=== PATIENT | female | born 1990 | race Caucasian/White ===

== ENCOUNTER → 2019-09-17 13:56 | Outpatient (CLI) | payer OTHER, SELFPAY ==
--- NOTE | 2019-09-17 14:02 | CT_ITS ---
STUDY: CT MAXILLOFACIAL SINUSES REASON FOR EXAM: Female, 29 years old. SINUSITIS, PRIOR POLYP REMOVAL TWO YEARS AGO RADIATION DOSAGE (If Supplied By Facility): CTDIvol = ( 33.45 ) mGy, DLP = ( 805.64 ) mGycm TECHNIQUE: The patient was scanned in a multi detector CT scanner. High resolution axial imaging was performed without the administration of intravenous contrast material. Sagittal and coronal images were reconstructed. Individualized dose optimization techniques were used for this CT. COMPARISON: Comparison is made with prior study dated March 10, 2017. FINDINGS: FRONTAL SINUSES: Opacification of the frontal sinuses. ETHMOIDAL SINUSES: Opacification of the ethmoid sinuses worse on the right side with thinning of the bony septations. MAXILLARY SINUSES: Opacification of the maxillary sinus bilaterally worse on the right side. There is thinning of the medial wall of both maxillary sinuses. SPHENOIDAL SINUSES: Opacification of the left sphenoid sinus and partial opacification of the right sphenoid sinus. There is obliteration of both maxillary infundibula due to mucosal hypertrophy. Normal bilateral middle turbinates. Normal bilateral inferior turbinates. Normal midline nasal septum. There is partial obstruction of the right nasal cavity most likely secondary to polyposis. The visualized osseous structures are normal. The visualized bilateral orbital contents are normal. CT/Sinus/Facial Bone IMPRESSION: Linder sinusitis with findings suggestive of polyposis of the right nasal fossa. Electronically Signed: Abhinav Waters, at 14:26 EDT , Service support ,
== END ==
PROVIDERS: PCP Family Medicine; Referring Provider Otolaryngology; Visit Provider Otolaryngology
DX: J33.9 Nasal polyp, unspecified (principal); J32.9 Chronic sinusitis, unspecified
CPT/HCPCS: 70486

== ENCOUNTER 2019-10-01 08:44 | Day surgery (SDC) | payer OTHER, SELFPAY ==
[2019-10-01] VITALS (7 sets, daily range): BP systolic 119–133; BP diastolic 83–97; PULSE 58–84; RESP 16–18; TEMP 36.1–36.5; O2SAT 99–100; BMI 30.7
[2019-10-01 09:19] LABS: Internal QC Validated? YES +Cl - CLEAR BKGD; Pregnancy, Urine Negative Negative
[2019-10-01] MEDS: Lactated Ringers 1,000 ML 100 ML IV (09:25)
--- NOTE | 2019-10-01 10:04 | DCINST_ITS ---
You will use the following diet at home:: No restrictions Your food should be the consistency of: Regular Discharge Activity: May not drive while taking narcotic pain medications. Call your doctor if your incision/area has: Sudden Increased Bleeding, Increased Pain/ Swelling Additional Dressing/Incision Instructions:: mupirocin to both nostrils daily. saline irrigation 5 times / day. sleep with head of bed elevated. Allergies/Adverse Reactions: Allergies No Known Allergies Allergy (Verified 10/01/19 09:09) Medications to take at Discharge Albuterol Inhaler [Ventolin Hfa (SP)] 1 - 2 puff INHALATION Q6H PRN PRN 09/24/19 Apremilast [Otezla] 1 ea PO QODAY 09/24/19 Cetirizine HCl [Zyrtec] 10 mg PO DAILY 09/24/19 Desogestrel-Ethinyl Estradiol [Enskyce 28 Tablet] 1 ea PO DAILY 09/24/19 Montelukast [Singulair] 10 mg PO DAILY 09/24/19 Propranolol HCl [Inderal] 10 mg PO DAILY 09/24/19 RX: Multivitamin 1 ea PO DAILY 09/24/19 Primary Care Physician: John Hudson MD [Primary Care Provider] - Test Results: Test results from this visit will be discussed in further detail at your follow- up appointment, if applicable. Please Follow Up With: Oral Hackett MD When: 1 week
--- NOTE | 2019-10-01 10:05 | PCM.OPRPT ---
Problem List (1) Nasal congestion Status: Chronic (2) Chronic sinusitis Status: Chronic (3) Nasal septal deviation Status: Chronic (4) Nasal turbinate hypertrophy Status: Chronic (5) Nasal polyps Status: Chronic Report of Operation Date of Procedure: 10/01/19 Pre-Operative Diagnosis: 1. nasal congestion. 2. inferior turbinate hypertrophy, right and left. 3. nasal septal deflection. 4. chronic pansinusitis. 5. nasal polyps Post-Operative Diagnosis: 1. nasal congestion. 2. inferior turbinate hypertrophy, right and left. 3. nasal septal deflection. 4. chronic pansinusitis. 5. nasal polyps Surgery/Procedure Performed:: 1. septoplasty. 2. inferior turbinate reduction, right and left. 3. endoscopic ethmoidectomy with sphenoidotomy, right and left. 4. endoscopic maxillary antrostomy, right and left. 5. extensive excision nasal polyps, right and left. 6. CT guided image navigation Type of Anesthesia:: General Description of Procedure: on the day of the procedure, after appropriate informed consent was obtained, the patient was brought to the operating room and placed in supine position on the operating table. she was placed under general endotracheal anesthesia by the anesthesiologist. the endotracheal tube was secured, the eyes were taped. the bilateral nasal cavities were decongested with oxymetazoline soaked pledgets. the septum was injected with lidocaine/epinephrine. a left marginal incision was made with a 15 blade. submucoperichondrial planes were developed using a delmar elevator posteriorly to the bony-cartilaginous junction and inferiorly to the maxillary crest. a 1.5cm L-strut was preserved and the remainder of the septum was removed with a D knife. deviated portions of the perpendicular plate of the ethmoid and vomer were removed with a helene rodriguez. the submucoperichondrial flaps were brought together with 4-0 chromic. the head of the right and left turbinates were injected with lidocaine/epinephrine. the head of the left inferior turbinate was incised with a 15 blade, dissected with a delmar elevator, reduced using suction cautery and outfractured using a boies elevator. the head of the right inferior turbinate was incised with a 15 blade, dissected with a delmar elevator, reduced using suction cautery and outfractured using a boies elevator. CT image guidance navigation was set up and accuracy confirmed. the zero degree endoscope was used to evaluate the left nasal cavity. extensive middle meatus, sphenoethmoidal recess and frontal recess polyps were removed with the microdebrider. a revision maxillary antrostomy was performed with the microdebrider and contents were evacuated. a revision total ethmoidectomy was performed with an upgoing blakesley. the previous sphenoidotomy was widedned with the microdebrider and contents were evacuated. a stankewicz maneuver was performed and no laminar defect was noted. the area was irrigated with saline and hemostasis was achieved with suction cautery. the zero degree endoscope was used to evaluate the right nasal cavity. extensive middle meatus, sphenoethmoidal recess and frontal recess polyps were removed with the microdebrider. a revision maxillary antrostomy was performed with the microdebrider and contents were evacuated. a revision total ethmoidectomy was performed with an upgoing blakesley. the previous sphenoidotomy was widedned with the microdebrider and contents were evacuated. a stankewicz maneuver was performed and no laminar defect was noted. the area was irrigated with saline and hemostasis was achieved with suction cautery. cervantes splints were sutured into place. an orogastric tube was inserted and gastric contents were evacuated. the patient was awoken from anesthesia by the anesthesiologist and transferred to the PACU in stable condition.
--- NOTE | 2019-10-01 10:15 | ETH_PTH ---
PATIENT: TJ VENEGAS LOC[place] [facility] [place][id number] AGE/SX: 29/F ROOM: RE10/01/[address]: Dr. Pop Hackett MD : 1990 BED: DIS: 10/01/2019 SPEC #: [id number] RECD: 10/01/19 13:43 STATUS: AIDEE REPraveen #: [id number] STEVE: 10/01/19 10:[address]: Pop Hackett DEPT: SURGICAL PATHOLOGY RECD BY: Serg Combs ENTERED: 10/02/19 09:21 SP TYPE: ETH TISS OTHR DR: Dr. John Hudson MD Tissues: A - Ethmoid sinus, NOS B - Ethmoid sinus, NOS Procedures: Surgery Specimen Level IV HEADER OPERATION: Functional endoscopic sinus surgery, septoplasty PRE-OP DIAGNOSIS: Polyp nasal cavity, chronic sinusitis, nasal congestion, deviated nasal septum, hypertrophy of nasal turbinates TISSUE SUBMITTED: A - Right ethmoid and maxillary sinus contents, B - Left ethmoid and maxillary sinus contents MICROSCOPIC DIAGNOSIS A. Right ethmoid and maxillary sinus contents: Fragments of respiratory mucosa with chronic inflammation, bone and cartilage. B. Left ethmoid and maxillary sinus contents: Fragments of respiratory mucosa with chronic inflammation and bone. ELIA:sandra 10/03/19 MICROSCOPIC DESCRIPTION Slides are reviewed. GROSS DESCRIPTION A - Received in fixative is one container labeled with the patient's name and designated right ethmoid and maxillary sinus contents. The specimen consists of multiple fragments of hemorrhagic soft tissue that in aggregate measure 3 x 2.5 x 0.3 cm. The specimen is totally submitted in one cassette. B - Received in fixative is one container labeled with the patient's name and designated left ethmoid and maxillary sinus contents. The specimen consists of multiple fragments of hemorrhagic soft tissue that in aggregate measure 3 x 2.5 x 0.4 cm. The specimen is totally submitted in one cassette. / ELIA:sandra 10/02/19 TC:3 CPT: 33338 x2
[2019-10-01] MEDS: Oxymetazoline 0.05% 1 SPRAY SPRAY.BTL 15 SPRAY ×2 (11:30)
[2019-10-01] MEDS: Mupirocin Ointment 22gm Tube 1 APPLIC (11:30)
== END 2019-10-01 14:59 | disposition home or self-care (01) ==
LOC: SDC 08:45 → AC 08:46
PROVIDERS: Anesthesiology; PCP Family Medicine; Referring Provider Otolaryngology; Visit Provider Otolaryngology
PROC: (CPT 30140; principal; 2019-10-01 09:45)
DX: J34.3 Hypertrophy of nasal turbinates (principal); J32.4 Chronic pansinusitis; J33.9 Nasal polyp, unspecified; J34.2 Deviated nasal septum; Z11.59 Encounter for screening for other viral diseases; J45.909 Unspecified asthma, uncomplicated
CPT/HCPCS: 00160; 30140; 31253; 31259; 31267; 81025; 87635; 88305; G2023; J7120; J2405; U0003

== ENCOUNTER → 2020-08-11 07:05 | Outpatient (CLI) | payer OTHER, SELFPAY ==
[2020-07-31 10:17] VITALS: BMI 33.6
--- NOTE | 2020-08-13 09:25 | PFTCOMP ---
INTRODUCTION: The patient is a 30-year-old female that presents for pulmonary function studies secondary to a diagnosis of asthma. Respiratory therapy reports good patient effort. Bronchodilators were used during testing. INTERPRETATION: Forced expiration spirometry demonstrates no evidence of a large airways obstructive ventilatory defect. There was no significant response to aerosolized bronchodilators, based upon strict ATS criteria. Spirograms are of good quality but plateau gradually indicating slow emptying of the lungs. Body plethysmography was performed and revealed a decreased TLC to 4.43 L, 77% of predicted, indicative of a mild restrictive ventilatory impairment. Diffusing capacity by single breath CO is reduced to 61% of predicted. IMPRESSION: Mild restrictive ventilatory impairment with symmetric reduction in diffusing capacity.
== END ==
PROVIDERS: PCP Family Medicine; Referring Provider Internal Medicine Critical Care Medicine; Visit Provider Internal Medicine Critical Care Medicine
DX: J45.998 Other asthma (principal); T39.015A Adverse effect of aspirin, initial encounter
CPT/HCPCS: 94060; 94726; 94729

== ENCOUNTER 2021-04-15 16:47 | Outpatient (CLI) | payer OTHER, SELFPAY | END 2021-04-15 23:59 | disposition short-term general hospital (02) | LOC: LAB 16:48 | PROVIDERS: PCP Family Medicine; Visit Provider Otolaryngology | DX: J32.9 Chronic sinusitis, unspecified (principal) | CPT/HCPCS: 87070; 87077; 87186; 87205 ==

== ENCOUNTER 2021-04-26 13:44 | Outpatient (CLI) | payer OTHER, SELFPAY ==
[2021-04-29 16:50] LABS: HPV APTIMA, High Risk Negative (Negative)
== END 2021-04-26 23:59 | disposition short-term general hospital (02) ==
LOC: LABSPEC 13:45
PROVIDERS: PCP Family Medicine; Visit Provider Obstetrics & Gynecology
DX: Z12.4 Encounter for screening for malignant neoplasm of cervix (principal)
CPT/HCPCS: 87624; 88175; G0145

== ENCOUNTER 2024-11-25 17:29 | Emergency (ER) | payer OTHER, SELFPAY ==
[2024-11-25 17:31] VITALS: BP 142/95; PULSE 108; RESP 16; TEMP 37.1; O2SAT 100; BMI 35.4
[2024-11-25 17:34] VITALS: BP 142/95; PULSE 108; RESP 16; TEMP 37.1; O2SAT 100
[2024-11-25 18:45] LABS: Hematocrit 41.3 % (37-47); Hemoglobin 13.6 g/dL (12.0-15.0); Immature Granulocytes Count 0.030 X10^3/uL (0.0-0.0); Mean Corp Hgb Conc 32.9 g/dL (32-36); Mean Corpuscular Volume 86.9 fL (81-99); Mean Platelet Vol. 9.6 fl (6.2-12.0); NRBC Flagged by Analyzer 0 % (0-5); Platelet Count 289 K/mm3 (150-450); RBC Distribution Width CV 12.7 % (11.6-14.6); RBC Distribution Width SD 40.4 fl (35.1-43.9); Red Blood Count 4.75 M/mm3 (4.2-5.4); White Blood Count 9.2 K/mm3 (4.4-11.0)
[2024-11-25 19:05] VITALS: BP 132/90; PULSE 92; RESP 19; TEMP 36.6; O2SAT 98
[2024-11-25 19:12] LABS: Internal QC Validated? YES +Cl - CLEAR BKGD; Pregnancy, Serum, hCG Quali. NEGATIVE Negative; Record Kit Lot#, Serum Preg. 962302
[2024-11-25 19:29] LABS: AST(SGOT) 25 U/L (<=31); Alanine Aminotransfer ALT/SGPT 12 U/L (<=34); Albumin, Serum 4.5 g/dL (3.5-5.0); Alkaline Phosphatase 61 U/L (35-104); Anion Gap 15 (5-15); BUN 6 mg/dL (4-19); BUN/Creat Ratio 8.2 RATIO (10-20); Calcium,Total 9.6 mg/dL (7.6-11.0); Carbon Dioxide 21.7 mmol/L (21.0-32.0); Chloride 101 mmol/L (98-108); Estimated Creatinine Clearance 136.12 ml/min (50-250); Globulin 3.5 g/dL (2.2-4.2); Glucose 106 mg/dL (70-99); Lipase 41 U/L (13-75); Potassium 3.8 mmol/L (3.3-5.1)
[2024-11-25 19:30] VITALS: BP 125/88; PULSE 87; RESP 22; O2SAT 99
[2024-11-25] MEDS: 0.9% Normal Saline (1000mL) 1,000 ML 999 ML IV (19:47)
--- NOTE | 2024-11-25 20:46 | ED.VIS.GI ---
HPI HPI - GI History of Present Illness Chief Complaint: Cold Sx Informant: patient Narrative Narrative: Diarrhea nonbloody for last 5 days. 4-5 a day. Started after eating a pot like an hour after. No other one was sick that she knows of. No fevers. No nausea or vomiting. Mild abdominal cramping. Last 2 days use Imodium last dose 1 PM last diarrhea was 8 AM. No recent antibiotics. She has been drinking fluids. She went to urgent care yesterday was told if things worsen to go to the ED. Denies any abdominal surgery. She does report some myalgias. [facility] Medical History COVID-19 Blepharitis of right upper eyelid Conjunctivitis, right eye Acute maxillary sinusitis, unspecified Mitral valve prolapse Psoriatic arthritis Nasal polyps Nasal turbinate hypertrophy Nasal septal deviation Chronic sinusitis Nasal congestion Home Medications ?Medication ?Instructions ?Recorded ?Last Taken ?Type fluticasone propionate 50 1 spray intranasal DAILY 07/31/20 Unknown History mcg/actuation nasal spray,suspension (Flonase Allergy Relief) dupilumab 300 mg/2 mL subcutaneous 300 mg subcut Q2W 07/14/21 Unknown History pen injector (Dupixent) cetirizine 10 mg tablet 10 mg PO DAILY #90 tabs 05/18/23 Unknown Rx norethindrone (contraceptive) 0.35 mg PO 05/18/23 Unknown History mg tablet (Celia) budesonide 180 mcg/actuation 2 inh inhalation BID #3 device 05/21/24 Unknown Rx breath activated powder inhaler (Pulmicort Flexhaler) albuterol sulfate 90 mcg/actuation 1 - 2 puff inhalation Q6H PRN PRN 06/13/24 Unknown Rx aerosol inhaler Asthma #18 grams tobramycin 0.3 % eye drops 1 drp ophthalmic (eye) Q2H #5 mL 07/30/24 Unknown Rx Allergy/AdvReac Type Severity Reaction Status Date / Time aspirin Allergy Severe asthma Verified 11/25/24 17:30 attack ibuprofen Allergy Severe asthma Verified 11/25/24 17:30 attack Family History Mother Thyroid disorder Surgical History History of tonsillectomy H/O sinus surgery Social History Smoking Status: Never smoker second hand exposure: No ROS ROS ED Constitutional Constitutional ED: Denies fever(s) Cardiovascular Cardiovascular: Denies chest pain Respiratory/Chest Respiratory/Chest: Denies cough Gastrointestinal Gastrointestinal: Reports abdominal pain and diarrhea; Denies vomiting Musculoskeletal Musculoskeletal: Reports myalgias; Denies none Integumentary Denies rash or wounds Neurologic Neurologic: Denies weakness EXAM Physical Exam Const Vital Signs: 11/25/24 17:31 11/25/24 17:34 11/25/24 19:05 Temperature 98.7 F 98.7 F 98 F Temperature Source Oral Oral Temporal Pulse Rate 108 H 108 H 92 Respiratory Rate 16 16 19 H Respiratory Effort Blood Pressure 142/95 H 142/95 H 132/90 H Blood Pressure Mean 110 110 104 Pulse Ox 100 100 98 Oxygen Delivery Method Room Air Room Air Room Air 11/25/24 19:30 11/25/24 20:57 11/25/24 21:06 Temperature 98 F Temperature Source Pulse Rate 87 77 Respiratory Rate 22 H 14 Respiratory Effort Normal Non-Labored Blood Pressure 125/88 H 119/90 H Blood Pressure Mean 100 99 Pulse Ox 99 98 Oxygen Delivery Method Room Air Positive well nourished and well developed General Appearance ED: well developed and NAD HEENT Reports moist mucous membranes normocephalic and atraumatic Eyes General Eye ED: Yes normal appearance of both eyes Neck full ROM Chest Wall Chest: Negative for tenderness Resp normal respiratory effort and normal air movement Effort and Inspection: symmetric chest movement; Negative for respiratory distress Cardio regular rate, regular rhythm and no murmurs Peripheral Pulses: pulses 2+ throughout GI normal to inspection, nondistended, normoactive bowel sounds and non-tender GI Narrative: Negative John's or McBurney's tenderness. Palpation: Negative for guarding or rebound tenderness present Extremity normal to inspection General Extremety ED: Negative for edema or tenderness General Extremity: Negative for edema Neuro oriented x3 and no sensory deficits noted Sensorium / Orientation: awake and alert Skin no rashes or lesions noted and no wounds MDM MDM MDM Narrative Medical decision making narrative: Interventions / MDM: Differential diagnosis: Diarrhea, myalgias Diagnosis considered but do not suspect: Dehydration, electrolyte abnormalities however labs were normal clinically not dehydrated. My EKG interpretation: N/A Imaging independently reviewed and interpreted by myself: N/A External documents reviewed: N/A Test considered but not ordered:N/A ED course: Patient nontoxic vital signs stable reports diarrhea for last 5 days however last time nearly 12 hours ago. Nonbloody. No recent antibiotics. Abdominal labs were ordered IV fluids stool studies were ordered. COVID flu and RSV also ordered. Labs were normal. COVID flu RSV negative. Patient clinically feeling better after fluids. She is unable to provide a stool sample. She does have a PCP. Nursing will send home stool collection kit to obtain take to her PCP if needed. She will continue oral fluid hydration. All questions were answered. Re-evaluation: stable Disposition discussed with patient/family/significant other: Patient Case discussed with consulting clinician: N/A This note was generated with [employer]isma[employer] dictation software. It may contain incorrect words, spelling, and punctuation that were not noted in checking the note before signing. Lab Data Attestation: I reviewed the patient's lab results. Labs: Laboratory Results - last 24 hr 11/25/24 18:31 WBC 9.2 RBC 4.75 Hgb 13.6 Hct 41.3 MCV 86.9 MCH 28.6 MCHC 32.9 RDW Std Deviation 40.4 RDW Coeff of Liz 12.7 Plt Count 289 MPV 9.6 Immature Gran % (Auto) 0.300 Neut % (Auto) 68.4 Lymph % (Auto) 21.4 [place] % (Auto) 8.6 Eos % (Auto) 0.8 Baso % (Auto) 0.5 Absolute Neuts (auto) 6.3 Absolute Lymphs (auto) 1.97 Nucleated RBC % 0 Sodium 138 Potassium 3.8 Chloride 101 Carbon Dioxide 21.7 Anion Gap 15 BUN 6 Creatinine 0.71 Estim Creat Clear Calc 136.12 Est GFR (MDRD) Non-Af 114 BUN/Creatinine Ratio 8.2 L Glucose 106 H Calcium 9.6 Total Bilirubin 0.28 AST 25 ALT 12 Alkaline Phosphatase 61 Total Protein 8.0 Albumin 4.5 Globulin 3.5 Albumin/Globulin Ratio 1.3 Lipase 41 Serum , Qual NEGATIVE Discharge Plan Triage Chief Complaint: Cold Sx Other Complaint: Diarrhea ED Provider: Juan Acosta Dx/Rx/DC Orders Clinical Impression: Diarrhea, Abdominal cramping Instructions: ED Diarrhea, Unknown Cause Prescriptions: No Action fluticasone propionate [Flonase Allergy Relief] 50 mcg/actuation spray,suspension 1 spray INTRANASAL DAILY Rx Instructions: administer into each nostril Dupixent Pen 300 mg/2 mL pen injector 300 mg subcut Q2W norethindrone (contraceptive) [Celia] 0.35 mg tablet PO cetirizine 10 mg tablet 10 mg PO DAILY Qty: 90 3RF Pulmicort Flexhaler 180 mcg/actuation aerosol powdr breath activated 2 inh inhalation BID Qty: 3 3RF tobramycin 0.3 % drops 1 drp ophthalmic (eye) Q2H Qty: 5 0RF Rx Instructions: to affected eye while awake first 24 hours, then 3x/day on days 2-5 albuterol sulfate 90 mcg/actuation HFA aerosol inhaler 1 - 2 puff inhalation Q6H PRN PRN (Reason: Asthma) Qty: 18 2RF Stand Alone Forms: ED Work / School Excuse Primary Care Provider: Nathen Sethi Referrals: Nathen Sethi DO [Primary Care Provider] - 3-5 Days Activity Restrictions/Additional Instructions: Abdominal labs were normal. COVID flu and RSV negative. Continue oral fluid hydration. You are unable to provide a stool sample in the ED. Collection kit sent home with you. If you are able to collect 1 at home discussed with PCP for an order for outpatient testing. Print Language: Occitan Disposition Disposition: Home, Self Care Discharge Date/Time: 11/25/24 21:07
[2024-11-25 20:57] VITALS: BP 119/90; PULSE 77; RESP 14; TEMP 36.6; O2SAT 98
== END 2024-11-25 21:07 | disposition home or self-care (01) ==
PROVIDERS: Emergency Provider Emergency Medicine; PCP Student in an Organized Health Care Education/Training Program; Visit Provider Emergency Medicine
DX: R19.7 Diarrhea, unspecified (principal); R10.9 Unspecified abdominal pain
CPT/HCPCS: 80053; 83690; 84703; 85025; 87631; 99284